=== PATIENT | female | born 1980 | race Caucasian/White ===

== ENCOUNTER 2020-02-25 12:40 | Emergency (ER) | payer OTHER, SELFPAY ==
--- NOTE | ~2020-02-25 | XR_ITS ---
EXAMINATION: XR ankle RT min 3V DATE: 02/25/2020 13:00 INDICATION: Right ankle injury and pain. TECHNIQUE: 4 views of right ankle were obtained. COMPARISON: None. FINDINGS: Bone alignment is normal. No fracture. There is mild osteoarthritis in the ankle joint and midfoot. There is heterotopic ossification distal to lateral malleolus, likely from old injury. There is an enthesophyte at medial malleolus. There are enthesophytes at the posterior and plantar aspects of calcaneal tuberosity. There is medial ankle soft tissue swelling. IMPRESSION: 1. Mild polyarticular osteoarthritis. Reviewed, dictated and finalized at location B.
[2020-02-25 12:52] VITALS: BP 130/80; PULSE 97; RESP 20; TEMP 36.8; O2SAT 100
--- NOTE | 2020-02-25 13:02 | ED.LOWEXIN ---
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 She states that she had her hands full and she missed the step coming out of her truck rolling her ankle outward. Patient has noted swelling and discomfort to the medial aspect of her right ankle with increase pain with weight bearing. Patient denies any tingling or numbness to her right foot or toes, strong pedal and posterior tibial pulses present. MD complaint: ankle injury Onset (ago): hour(s) (1) Injury: Right: ankle Type of Injury: eversion Place: other (exiting her truck) Severity: moderate Severity scale (1-10): 5 Relieving factors: rest Exacerbating factors: weight bearing and movement Context: fall Associated symptoms: swelling and able to partially bear weight Other symptoms: none Related Data Home Medications Medication Instructions Recorded Confirmed doxepin 25 mg HS 02/25/20 02/25/20 lamotrigine 100 mg DAILY 02/25/20 02/25/20 venlafaxine 150 mg PO DAILY 02/25/20 02/25/20 Review of Systems Review of Systems: Narrative: CONSTITUTIONAL: Denies fever, chills, or sweats. EYES: Denies visual changes, redness, or discharge. ENT: Denies rhinorrhea, congestion, sore throat, or otalgia. CARDIOVASCULAR: Denies chest pain, palpitations, or edema. RESPIRATORY: Denies cough or dyspnea. GASTROINTESTINAL: Denies abdominal pain, nausea, vomiting, or diarrhea. GENITOURINARY: Denies dysuria or hematuria. SKIN: Denies rash or itching. MUSCULOSKELETAL: Denies back pain, positive for right medial ankle joint pain, or myalgia. NEUROLOGIC: Denies headache, numbness, or weakness. PSYCHIATRIC: Denies anxiety or depression. All systems reviewed & are unremarkable except as noted in HPI and below PMFSH Past Medical History Medical History (Updated 02/25/20 @ 13:32 by Kimberly Sloan NP) Anxiety and depression Surgical History Surgical History (Updated 02/25/20 @ 13:33 by Kimberly Sloan NP) History of appendectomy Previous section Social History Social History (Updated 02/25/20 @ 13:38 by Kimberly Sloan NP) Smoking status: Current every day smoker Tobacco type: cigarettes Living arrangements: with family Gender identity (if verbalized by the patient): Female Comments At time of signature, agree with nursing past medical, surgical, social history. There is no relevant family history pertinent to the presenting complaint Exam Narrative: Exam Narrative: GENERAL: Well-appearing, well-nourished, and in no acute distress. HEAD: Normocephalic, atraumatic. EYES: PERRLA and EOMI. ENT: Nares clear, no rhinorrhea or epistaxis. Mucous membranes moist. NECK: Supple. CHEST: Clear to auscultation. No respiratory distress.SAO2 100% on room air HEART: Regular rate and rhythm. No murmur heard. Normal peripheral pulses. ABDOMEN: Soft, nontender, nondistended, normal active bowel sounds. EXTREMITIES: Normal range of motion. No edema.with exception to right medial ankle which is painful and swollen from rolling her ankle about an hour ago. Patient states that she has had previous fracture to the ankle on the outside, lateral aspect of right ankle. SKIN: Warm, dry, no rash. NEURO: No focal deficits. Alert and oriented x3. Course Vital Signs Vital signs: Vital Signs Temperature 36.8 C 02/25/20 12:52 Pulse Rate 97 02/25/20 12:52 Respiratory Rate 20 02/25/20 12:52 Blood Pressure 130/80 02/25/20 12:52 Pulse Oximetry 100 02/25/20 12:52 Temperature 36.8 C 02/25/20 12:52 Pulse Rate 97 02/25/20 12:52 Respiratory Rate 20 02/25/20 12:52 Blood Pressur
== END 2020-02-25 13:28 | disposition home or self-care (01) ==
PROVIDERS: Emergency Provider Registered Nurse
DX: S93.401A Sprain of unspecified ligament of right ankle, initial encounter (principal); S96.911A Strain of unspecified muscle and tendon at ankle and foot level, right foot, initial encounter; X50.9XXA Other and unspecified overexertion or strenuous movements or postures, initial encounter; M19.071 Primary osteoarthritis, right ankle and foot; F17.210 Nicotine dependence, cigarettes, uncomplicated; F41.9 Anxiety disorder, unspecified; F32.9 Major depressive disorder, single episode, unspecified
CPT/HCPCS: 73610; 99203; G0463

== ENCOUNTER 2022-01-19 21:06 | Emergency (ER) | payer OTHER, SELFPAY ==
--- NOTE | ~2022-01-19 | XR_ITS ---
EXAMINATION: XR chest 2V Exam Date/Time: 01/19/2022 22:30 CDT HISTORY: FATIGUE X 1 DAY Comparison: 08/12/2014. RESULT: Lines, tubes, and devices: None. Lungs and pleura: Clear. Cardiomediastinal silhouette: Stable cardiomediastinal silhouette. Other: No acute osseous or upper abdominal finding. IMPRESSION: No acute cardiopulmonary process. Reviewed, dictated and finalized at location K.
[2022-01-19 21:16] VITALS: BP 139/78; PULSE 123; RESP 22; TEMP 36.8; O2SAT 98
--- NOTE | 2022-01-19 21:22 | ED.WEAKNESS ---
HPI - Weakness General Chief complaint: Unspecified Stated complaint: weakness, headache, muscle aches, dehydration Time Seen by Provider: 01/19/22 21:22 Source: patient and RN notes reviewed Mode of arrival: ambulatory Limitations: no limitations History of Present Illness Complaint: generalized weakness Onset (ago): hour(s) (20) Duration: constant and progressively worsening Location: generalized Migration: none Severity: moderate Quality: aching Relieving factors: none Exacerbating factors: none Associated symptoms: headaches and myalgias Related Data Home Medications Medication Instructions Recorded Confirmed doxepin 25 mg capsule 25 mg HS 02/25/20 01/19/22 lamotrigine 100 mg tablet 100 mg DAILY 02/25/20 01/19/22 venlafaxine 150 mg 150 mg PO DAILY 02/25/20 01/19/22 capsule,extended release 24 hr Allergies Allergy/AdvReac Type Severity Reaction Status Date / Time ondansetron Allergy Intermediate rash Verified 01/19/22 21:20 Review of Systems Review of Systems: All systems reviewed & are unremarkable except as noted in HPI and below Constitutional: Constitutional: Reports chills and Reports fever(s) ( subjective) ENT: Reports sore throat ( mild) Respiratory: Respiratory: Reports cough ( productive phlegm) Gastrointestinal: Gastrointestinal: Reports diarrhea ( this morning), Denies nausea and Denies vomiting PMFSH Past Medical History Medical History Anxiety and depression Morbid obesity Surgical History Surgical History History of appendectomy Previous section Social History Social History Smoking status: Current every day smoker Tobacco type: cigarettes Gender identity (if verbalized by the patient): Female Exam Const: General: no acute distress, alert and ill appearing acutely Nutritional Appearance: well nourished and obese morbidly obese Orientation/consciousness: patient oriented x3 Limitations: no limitations Other: female tech in room during examination. HENMT: Head: normal to inspection Ears: external ears normal Eyes: Conjunctivae: conjunctivae normal Pupils: Equal, round and reactive pupils present EOM: EOMs intact bilaterally Neck: Neck: normal visual inspection Resp: Effort & Inspection: normal respiratory effort Auscultation: clear to auscultation bilaterally Cardio: Rate: tachycardic Rhythm: regular rhythm GI: GI Palp: Yes Soft to palpation and No Tenderness to palpation present (GI) Auscultation: normal bowel sounds Back/Spine/Pelvis: Cervical Spine: cervical ROM normal Thoracic/Lumbar Spine: thoraco-lumbar ROM normal Skin: General skin exam: normal color Rashes: no rashes Neuro: General: patient oriented x3, moves all extremities, no focal motor deficits and CN's II-XI intact bilaterally Speech: normal speech Gait exam (Neuro): Normal gait present Extrem: General: normal to inspection and no clubbing, cyanosis or edema Psych: Mental Status: mental status grossly normal Affect: normal affect Attitude: cooperative Course Vital Signs Vital signs: Vital Signs Temperature 36.8 C 01/19/22 21:16 Pulse Rate 123 H 01/19/22 21:16 Respiratory Rate 22 H 01/19/22 21:16 Blood Pressure 139/78 01/19/22 21:16 Pulse Oximetry 98 01/19/22 21:16 Oxygen Delivery Room Air 01/19/22 21:16 Temperature 36.8 C 01/19/22 21:16 Pulse Rate 98 01/19/22 23:26 Respiratory Rate 18 01/19/22 23:26 Blood Pressure 121/65 01/19/22 23:26 Pulse Oximetry 98 01/19/22 23:26 Oxygen Delivery Room Air 01/19/22 23:26 MDM - Weakness MDM Narrative Medical decision making narrative: I considered influenza, COVID, other viral syndromes, and pneumonia. Lab Data Attestation: I reviewed the patient's lab results. Result diagrams: 01/19/22 21:34 01/19/22
[2022-01-19 21:37] LABS: Basophils Absolute Auto 0.01 K/mm3 (0.00-0.10); Basophils Percent Auto 0.1 % (0.0-1.0); Hematocrit 42.3 % (35.0-49.0); Immature Granulocyte Absolute 0.05 K/mm3 (0.00-0.00); Immature Granulocyte Percent A 0.7 % (0.0-0.0); Lymphocytes Absolute Auto 0.86 K/mm3 (1.10-4.50); Lymphocytes Percent Auto 11.6 % (18.0-42.0); Mean Corpuscular HGB Conc 33.1 g/dL (32.0-36.0); Mean Corpuscular Hemoglobin 30.9 pg (27.0-31.0); Mean Corpuscular Volume 93.4 fL (78.0-102.0); Monocytes Absolute Auto 0.31 K/mm3 (0.10-0.90); Monocytes Percent Auto 4.2 % (2.0-11.0); Neutrophils Absolute Auto 6.2 K/mm3 (1.7-7.2); Neutrophils Percent Auto 83.4 % (50.0-70.0); Platelet Count Result 291 K/mm3 (150-420); Red Blood Count 4.53 M/mm3 (4.20-5.40); Red Cell Distribution Width 12.3 % (11.6-14.4); White Blood Count 7.4 K/mm3 (4.8-10.8)
[2022-01-19 22:03] LABS: Alanine Aminotransferase 39 U/L (14-59); Albumin Level 3.5 g/dL (3.4-5.0); Alkaline Phosphatase 135 U/L (46-116); Anion Gap 11 mmol/L (8-16); Aspartate Amino Transferase 14 U/L (15-37); Bilirubin,Total 0.5 mg/dL (0.00-1.00); Blood Urea Nitrogen 10 mg/dL (7-18); CRP 2.7 mg/dL (0.0-0.9); Calcium 8.7 mg/dL (8.5-10.1); Carbon Dioxide 21 mmol/L (21-32); Chloride 100 mmol/L (98-108); Estimated CRCL calculation 71 ml/min; Estimated Glomerular Filt Rate 47; Ferritin 149 ng/mL (8-252); Glucose 140 mg/dL (70-99); Osmolality Calculated 275 mOsm/kg (285-295); Sodium 132 mmol/L (136-145); Total Protein 7.5 g/dL (6.4-8.2)
[2022-01-19 22:13] LABS: Influenza A QL RT-PCR Negative (Negative); Influenza B QL RT-PCR Negative (Negative); Lactic Acid Reflex 1.2 mmol/L (0.4-2.0); SARS-CoV-2 RNA PCR Negative (Negative)
[2022-01-19] MEDS: KETOROLAC (*BKC) 60 MG/2 ML VIAL IM (23:22)
--- NOTE | 2022-01-19 23:25 | PC.NURSE ---
Went into pt's room with Dr Dangelo while he did his assessment with pt.
[2022-01-19 23:26] VITALS: BP 121/65; PULSE 98; RESP 18; O2SAT 98
== END 2022-01-19 23:26 | disposition home or self-care (01) ==
PROVIDERS: Emergency Provider Emergency Medicine
DX: B34.9 Viral infection, unspecified (principal); Z20.822 Contact with and (suspected) exposure to COVID-19
CPT/HCPCS: 36415; 71046; 73140; 80053; 82728; 83605; 83735; 85025; 86140; 87502; 96372; 99283; C9803; J1885; U0003; U0005

== ENCOUNTER 2023-03-20 18:21 | Emergency (ER) | payer OTHER, SELFPAY ==
[2023-03-20 18:23] VITALS: BP 125/95; PULSE 75; RESP 18; TEMP 37.2; O2SAT 98
[2023-03-20 18:25] VITALS: BP 125/95; PULSE 75; RESP 17; TEMP 37.2; O2SAT 98
--- NOTE | 2023-03-20 18:29 | ED.GENADULT ---
HPI - General Adult General Chief complaint: Ear Stated complaint: spider bite/ear Time Seen by Provider: 03/20/23 18:22 Source: patient Mode of arrival: ambulatory Limitations: no limitations History of Present Illness HPI narrative: patient is a 42-year-old female with right posterior ear pain and swelling in the past day. There was no spider bite but she was concerned the possibility. Onset (ago): day(s) Location: head Radiation: non-radiation Severity: moderate Severity scale (1-10): 4 Quality: sharp Pain Consistency: constant Relieving factors: none Exacerbating factors: movement Associated symptoms: headaches Treatments prior to arrival: none Related Data Home Medications Medication Instructions Recorded Confirmed doxepin 25 mg capsule 25 mg HS 02/25/20 03/20/23 lamotrigine 100 mg tablet 100 mg DAILY 02/25/20 03/20/23 venlafaxine 150 mg 150 mg PO DAILY 02/25/20 03/20/23 capsule,extended release 24 hr Allergies Allergy/AdvReac Type Severity Reaction Status Date / Time ondansetron Allergy Intermediate rash Verified 03/20/23 18:25 Review of Systems Review of Systems: All systems reviewed & are unremarkable except as noted in HPI and below Constitutional: Constitutional: Reports no additional constitutional complaints Eyes: Eyes: Reports no additional eye complaints ENT: Reports system reviewed and no additional complaints, except as documented Cardiovascular: Cardiovascular: Reports no additional cardiovascular complaints Respiratory: Respiratory: Reports no additional respiratory complaints Gastrointestinal: Gastrointestinal: Reports no additional gastrointestinal complaints Genitourinary: Genitourinary: Reports no additional female genitourinary complaints Musculoskeletal: Musculoskeletal: Reports no additional musculoskeletal complaints Integumentary/Breasts: Skin/Breast: Reports system reviewed and no additional complaints, except as docu Neurologic: Reports system reviewed and no additional complaints, except as documented Psychiatric: Psychiatric: Reports no additional psychiatric complaints Endocrine: Endocrine: Reports no additional endocrine complaints Hematologic/Lymphatic: Hematologic/Lymphatic: Reports no additional hematologic/lymphatic complaints Allergic/Immunologic: Allergic/Immunologic: Reports no additional allergic/immunologic complaints [facility] Past Medical History Medical History Anxiety and depression Morbid obesity Surgical History Surgical History History of appendectomy Previous section Social History Social History Smoking status: Current every day smoker Tobacco type: cigarettes Living arrangements: with family Gender identity (if verbalized by the patient): Female Exam Const: General: cooperative, healthy appearing and comfortable HENMT: Head: abnormal to inspection ( Right post auricular lymphadenopathy with tenderness and erythema), skull fracture palpable, normocephalic, signs of trauma and no abrasions Ears: hearing grossly normal bilaterally, external ears normal, TM's normal bilaterally, EAC's not normal and Abnormal EAC present ( right greater than left irritated and inflamed canals with excoriation) erythema, edema and EAC tenderness Face and sinus: normal facial exam and sinuses nontender Mouth: Yes Normal oral and palatal mucosa present, Yes lip normal, Yes tongue normal, Yes Normal salivary glands and ducts present, Yes oropharynx normal and Yes moist mucous membranes Chest: Chest palpation & inspection: normal inspection of the chest Resp: Effort & Inspection: normal respiratory effort, able to speak in complete sentences, normal respiratory pattern, no grunting and not labored Cardio: Jugular venous distension: no JVD Rate: regular rate Rhythm: regular rhy
[2023-03-20] MEDS: NEOMYCIN/POLYMYXIN/HYDROCORT OT SUSP 10 ML BTL (*BKC) 3 DROP EACH EAR (18:32)
[2023-03-20 18:51] VITALS: BP 125/95; PULSE 75; RESP 18; TEMP 37.2; O2SAT 98
== END 2023-03-20 18:51 | disposition home or self-care (01) ==
PROVIDERS: Emergency Provider Emergency Medicine
DX: H60.333 Swimmer's ear, bilateral (principal); F32.A Depression, unspecified; F41.9 Anxiety disorder, unspecified; F17.210 Nicotine dependence, cigarettes, uncomplicated
CPT/HCPCS: 99283; A9270

== ENCOUNTER 2023-06-04 21:44 | Emergency (ER) | payer OTHER, SELFPAY ==
[2023-06-04 21:51] VITALS: BP 110/91; PULSE 106; RESP 18; TEMP 36.7; O2SAT 97
--- NOTE | 2023-06-04 21:58 | ED.GENADULT ---
HPI - General Adult General Chief complaint: Extremity Injury, Lower Stated complaint: pain in L leg calf Time Seen by Provider: 06/04/23 21:58 Source: patient Mode of arrival: ambulatory Limitations: no limitations History of Present Illness HPI narrative: 42-year-old female history of obesity, anxiety / depression presents to the ER with Related Data Home Medications Medication Instructions Recorded Confirmed No Home Medications 06/04/23 06/04/23 Allergies Allergy/AdvReac Type Severity Reaction Status Date / Time ondansetron Allergy Intermediate rash Verified 06/04/23 21:49 PMFSH Past Medical History Medical History Anxiety and depression Morbid obesity Surgical History Surgical History History of appendectomy Previous section Social History Social History Smoking status: Current every day smoker Tobacco type: cigarettes Living arrangements: with family Gender identity (if verbalized by the patient): Female Discharge Plan Discharge Prescriptions: No Action No Home Medications Follow-up/Referrals: UNKNOWN,DOCTOR [Primary Care Provider] -
--- NOTE | 2023-06-04 22:12 | ED.SKABFB ---
HPI - Skin/Abscess/Foreign Bdy General Chief complaint: Extremity Injury, Lower Stated complaint: pain in L leg calf Time Seen by Provider: 06/04/23 21:58 Source: patient Mode of arrival: ambulatory Limitations: no limitations History of Present Illness HPI narrative: 42-year-old female with a history of obesity, anxiety / depression presents to the ER with 4 day history of -- left lateral leg erythematous rash measuring 8 cm X 4 cm. The rash is indurated and tender. No itching patient thought that this was a ruptured varicose vein. no other complaints. MD complaint: rash Onset (ago): day(s) ( Present for the past 4 days) Tetanus up to date: no Location: LLE Severity: mild Quality: aching Relieving factors: none Exacerbating factors: none Associated symptoms: denies other symptoms Treatments prior to arrival: none Related Data Allergies Allergy/AdvReac Type Severity Reaction Status Date / Time ondansetron Allergy Intermediate rash Verified 06/04/23 21:49 Review of Systems Review of Systems: All systems reviewed & are unremarkable except as noted in HPI and below Constitutional: Constitutional: Reports as per HPI and Reports no additional constitutional complaints Eyes: Eyes: Reports as per HPI and Reports no additional eye complaints ENT: Reports system reviewed and no additional complaints, except as documented and Reports as per HPI Cardiovascular: Cardiovascular: Reports as per HPI and Reports no additional cardiovascular complaints Respiratory: Respiratory: Reports as per HPI and Reports no additional respiratory complaints Gastrointestinal: Gastrointestinal: Reports as per HPI and Reports no additional gastrointestinal complaints Genitourinary: Genitourinary: Reports no additional female genitourinary complaints Musculoskeletal: Musculoskeletal: Reports no additional musculoskeletal complaints and Reports as per HPI Integumentary/Breasts: Comments: & cms X 4 cms erythematous rash on the left lateral leg. Prominent varicose veins Neurologic: Reports system reviewed and no additional complaints, except as documented and Reports as per HPI Psychiatric: Psychiatric: Reports no additional psychiatric complaints and Reports as per HPI Endocrine: Endocrine: Reports no additional endocrine complaints and Reports as per HPI Hematologic/Lymphatic: Hematologic/Lymphatic: Reports no additional hematologic/lymphatic complaints and Reports as per HPI Allergic/Immunologic: Allergic/Immunologic: Reports no additional allergic/immunologic complaints and Reports as per HPI [facility] Past Medical History Medical History Anxiety and depression Morbid obesity Surgical History Surgical History History of appendectomy Previous section Social History Social History Smoking status: Current every day smoker Tobacco type: cigarettes Living arrangements: with family Gender identity (if verbalized by the patient): Female Exam Const: General: healthy appearing and no acute distress Nutritional Appearance: well nourished Orientation/consciousness: patient oriented x3 Limitations: no limitations HENMT: Head: normal to inspection Ears: external ears normal Face/Nose/Sinus: Normal external nose present Face and sinus: normal facial exam Mouth: Yes Normal oral and palatal mucosa present Throat: posterior oropharynx normal Eyes: Conjunctivae: conjunctivae normal Pupils: Equal, round and reactive pupils present EOM: EOMs intact bilaterally Neck: Neck: normal visual inspection, no lymphadenopathy and no meningeal signs Chest: Chest palpation & inspection: normal inspection of the chest Resp: Effort & Inspection: normal respiratory effort Auscultation: clear to auscultation bilaterally Cardio: Rate: regular rate Rhythm: regul
[2023-06-04] MEDS: TETANUS,DIPHTHERIA,AC PERTUSSIS ADULT 0.5 ML (ADACEL) IM (22:41)
[2023-06-04 22:51] VITALS: BP 133/79; PULSE 87; RESP 18; O2SAT 98
== END 2023-06-04 22:55 | disposition home or self-care (01) ==
PROVIDERS: Emergency Provider Internal Medicine Critical Care Medicine
DX: L03.116 Cellulitis of left lower limb (principal); R21 Rash and other nonspecific skin eruption; F17.210 Nicotine dependence, cigarettes, uncomplicated; Z23 Encounter for immunization
CPT/HCPCS: 90471; 90715; 99283

== ENCOUNTER 2023-06-30 11:35 | Emergency (ER) | payer OTHER, SELFPAY ==
[2023-06-30 11:45] VITALS: BP 123/80; PULSE 69; RESP 16; TEMP 36.7; O2SAT 100
--- NOTE | 2023-06-30 12:16 | ED.GENADULT ---
HPI - General Adult General Chief complaint: Headache Stated complaint: Headache Time Seen by Provider: 06/30/23 12:16 Source: patient, RN notes reviewed and old records reviewed Mode of arrival: ambulatory Limitations: no limitations History of Present Illness HPI narrative: 42-year-old female presents to the [facility] with a headache. Started 2 days ago Started her period today, increased stress. No diagnosis of previous migraines. Denies any significant medical history Related Data Home Medications Medication Instructions Recorded Confirmed No Home Medications 06/30/23 06/30/23 Allergies Allergy/AdvReac Type Severity Reaction Status Date / Time ondansetron Allergy Intermediate rash Verified 06/30/23 11:41 Review of Systems Review of Systems: All systems reviewed & are unremarkable except as noted in HPI and below Constitutional: Constitutional: Reports no additional constitutional complaints Eyes: Eyes: Reports no additional eye complaints ENT: Reports system reviewed and no additional complaints, except as documented Cardiovascular: Cardiovascular: Reports no additional cardiovascular complaints, Denies chest pain and Denies dyspnea Respiratory: Respiratory: Reports no additional respiratory complaints, Denies chest congestion, Denies cough and Denies dyspnea Gastrointestinal: Gastrointestinal: Reports no additional gastrointestinal complaints, Denies abdominal pain, Denies nausea and Denies vomiting Musculoskeletal: Musculoskeletal: Reports no additional musculoskeletal complaints Integumentary/Breasts: Skin/Breast: Reports system reviewed and no additional complaints, except as docu Neurologic: Reports as per HPI Psychiatric: Psychiatric: Reports no additional psychiatric complaints Allergic/Immunologic: Allergic/Immunologic: Reports no additional allergic/immunologic complaints PMFSH Past Medical History Medical History Anxiety and depression Morbid obesity Surgical History Surgical History History of appendectomy Previous section Social History Social History Smoking status: Current every day smoker Tobacco type: cigarettes Living arrangements: with family Gender identity (if verbalized by the patient): Female Comments At the time of my signature, I reviewed and agree with the nursing past medical, surgical, social, and family history. There is no relevant family history pertinent to the patient complaint. Exam Const: General: cooperative, healthy appearing, comfortable, no acute distress, well developed, alert and well nourished Nutritional Appearance: well nourished Orientation/consciousness: patient oriented x3 Limitations: no limitations HENMT: Head: normal to inspection Ears: hearing grossly normal bilaterally, external ears normal, TM's normal bilaterally, EAC's normal, mastoids normal and no periauricular adenopathy Face/Nose/Sinus: Normal external nose present, Normal nares present, Normal nasal mucous membranes and turbinates present, normal facial exam and face symmetric Face and sinus: normal facial exam and face symmetric Mouth: Yes Normal oral and palatal mucosa present, Yes lip normal and Yes moist mucous membranes Throat: posterior oropharynx normal, tonsils normal and uvula midline Eyes: General: appearance normal, both eyes and all related structures Alignment and Position: alignment normal Periorbital: periorbital findings normal Pupils: Equal, round and reactive pupils present EOM: EOMs intact bilaterally Neck: Neck: normal visual inspection, full ROM, no lymphadenopathy and no meningeal signs Chest: Chest palpation & inspection: normal inspection of the chest Resp: Effort & Inspection: normal respiratory effort and able to speak in complete sentences Auscultation: clear to ausc
[2023-06-30] MEDS: KETOROLAC (*BKC) 60 MG/2 ML VIAL IM (12:27)
== END 2023-06-30 13:02 | disposition home or self-care (01) ==
PROVIDERS: Emergency Provider Nurse Practitioner
DX: R51.9 Headache, unspecified (principal); F17.210 Nicotine dependence, cigarettes, uncomplicated
CPT/HCPCS: 96372; 99213; G0463; J1885

== ENCOUNTER 2023-07-22 06:47 | Emergency (ER) | payer OTHER, SELFPAY ==
[2023-07-22 06:50] VITALS: BP 130/73; PULSE 78; RESP 20; TEMP 36.9; O2SAT 100
[2023-07-22 08:32] LABS: Influenza A QL RT-PCR Negative (Negative); Influenza B QL RT-PCR Negative (Negative); RSV RNA, RT-PCR Negative (Negative); SARS-CoV-2 RNA PCR Negative (Negative)
--- NOTE | 2023-07-22 09:18 | ED.GENADULT ---
HPI - General Adult General Chief complaint: Upper Respiratory Infection Stated complaint: uri Time Seen by Provider: 07/22/23 07:24 History of Present Illness HPI narrative: Patient is a 42-year-old female who presents with 2 separate issues. First issue is sinus congestion sore throat and cough. Ongoing for 4 days. No fevers or chills or sweats. No known sick contacts. No dyspnea. Patient also has issues with her proximal right thigh. Nose tenderness and swelling over last 2 days. Unable see the area but thinks it may be developing infection. Unsure if draining. Related Data Allergies Allergy/AdvReac Type Severity Reaction Status Date / Time ondansetron Allergy Intermediate rash Verified 07/22/23 07:33 Review of Systems Constitutional: Constitutional: Reports no additional constitutional complaints ENT: Reports nasal congestion and Reports sore throat Cardiovascular: Cardiovascular: Reports no additional cardiovascular complaints Respiratory: Respiratory: Reports no additional respiratory complaints Gastrointestinal: Gastrointestinal: Reports no additional gastrointestinal complaints Integumentary/Breasts: Skin/Breast: Denies erythema, Denies rash and Denies skin ulcer Comments: right leg induration PMFSH Past Medical History Medical History Anxiety and depression Morbid obesity Surgical History Surgical History History of appendectomy Previous section Social History Social History Smoking status: Current every day smoker Tobacco type: cigarettes Living arrangements: with family Gender identity (if verbalized by the patient): Female Exam Narrative: GENERAL: Well-appearing, well-nourished, and in no acute distress. HEAD: Normocephalic, atraumatic. ENT: Mucous membranes moist. CHEST: Clear to auscultation. No respiratory distress. HEART: Regular rate and rhythm. Normal peripheral pulses. EXTREMITIES: Normal range of motion. No edema. SKIN: Warm, dry, no rash. Developing cellulitis versus abscess to the proximal right thigh, 1.5 cm in diameter. the area is indurated and tender but there is no fluctuance. NEURO: Alert and oriented x3. PSYCH: Normal mood and affect. Course Course Emergency Course: No drainage after needling the area of infection to leg. Discharge home with oral antibiotic. Discussed viral swab results. Discharge. Vital Signs Vital signs: Vital Signs Temperature 98.5 F 07/22/23 06:50 Pulse Rate 78 07/22/23 06:50 Respiratory Rate 20 07/22/23 06:50 Blood Pressure 130/73 07/22/23 06:50 Pulse Oximetry 100 07/22/23 06:50 Oxygen Delivery Room Air 07/22/23 06:50 Temperature 98.5 F 07/22/23 06:50 Pulse Rate 78 07/22/23 06:50 Respiratory Rate 20 07/22/23 06:50 Blood Pressure 130/73 07/22/23 06:50 Pulse Oximetry 100 07/22/23 06:50 Oxygen Delivery Room Air 07/22/23 06:50 Medical Decision Making Vital Signs Vital Signs: Vital Signs Temperature 98.5 F 07/22/23 06:50 Pulse Rate 78 07/22/23 06:50 Respiratory Rate 20 07/22/23 06:50 Blood Pressure 130/73 07/22/23 06:50 Pulse Oximetry 100 07/22/23 06:50 Oxygen Delivery Room Air 07/22/23 06:50 Temperature 98.5 F 07/22/23 06:50 Pulse Rate 78 07/22/23 06:50 Respiratory Rate 20 07/22/23 06:50 Blood Pressure 130/73 07/22/23 06:50 Pulse Oximetry 100 07/22/23 06:50 Oxygen Delivery Room Air 07/22/23 06:50 Lab Data Labs: Lab Results 07/22/23 Range/Units 07:43 Influenza A (RT-PCR) Negative (Negative) Influenza B (RT-PCR) Negative (Negative) RSV (RT-PCR) Negative (Negative) SARS-CoV-2 RNA (RT-PCR) Negative (Negative) Discharge Plan Discharge Clinical Impression: Acute viral syndrome, Cellulitis Patient
== END 2023-07-22 07:32 | disposition home or self-care (01) ==
PROVIDERS: Emergency Provider Emergency Medicine
DX: B34.9 Viral infection, unspecified (principal); L03.115 Cellulitis of right lower limb; Z20.822 Contact with and (suspected) exposure to COVID-19; E66.01 Morbid (severe) obesity due to excess calories; Z68.41 Body mass index [BMI] 40.0-44.9, adult; F17.210 Nicotine dependence, cigarettes, uncomplicated
CPT/HCPCS: 87637; 99283

== ENCOUNTER 2023-11-09 18:13 | Emergency (ER) | payer SELFPAY ==
[2023-11-09 18:13] VITALS: BP 125/85; PULSE 80; RESP 18; TEMP 36.1; O2SAT 99
--- NOTE | 2023-11-09 18:25 | ED.DENTAL ---
HPI - Dental/Oral General Chief complaint: Dental/Oral Stated complaint: left jaw pain Time Seen by Provider: 11/09/23 18:25 Source: patient Mode of arrival: ambulatory Limitations: no limitations History of Present Illness HPI Narrative: 43-year-old female, smoker with a history of anxiety / depression presents to the ER with -- left TMJ pain and swelling. she has had this pain off and on for the past 1 or 2 weeks. the left TMJ pops intermittently. Pain is continuous. She swelling around the left TMJ. no ear complaints. No dental pain. -- Thumb sucking Severity scale (1-10): 6 Relieving factors: nothing Exacerbating factors: nothing Treatment prior to arrival: none Related Data Allergies Allergy/AdvReac Type Severity Reaction Status Date / Time ondansetron Allergy Intermediate rash Verified 11/09/23 18:14 Review of Systems Review of Systems: All systems reviewed & are unremarkable except as noted in HPI and below Constitutional: Constitutional: Reports as per HPI and Reports no additional constitutional complaints Eyes: Eyes: Reports as per HPI and Reports no additional eye complaints ENT: Reports system reviewed and no additional complaints, except as documented and Reports as per HPI Cardiovascular: Cardiovascular: Reports as per HPI and Reports no additional cardiovascular complaints Respiratory: Respiratory: Reports as per HPI and Reports no additional respiratory complaints Gastrointestinal: Gastrointestinal: Reports as per HPI and Reports no additional gastrointestinal complaints Genitourinary: Genitourinary: Reports no additional female genitourinary complaints and Reports as per HPI Musculoskeletal: Musculoskeletal: Reports no additional musculoskeletal complaints Comments: Left TMJ pain Integumentary/Breasts: Skin/Breast: Reports system reviewed and no additional complaints, except as docu and Reports as per HPI Neurologic: Reports system reviewed and no additional complaints, except as documented and Reports as per HPI Psychiatric: Psychiatric: Reports no additional psychiatric complaints and Reports as per HPI Endocrine: Endocrine: Reports no additional endocrine complaints and Reports as per HPI Hematologic/Lymphatic: Hematologic/Lymphatic: Reports no additional hematologic/lymphatic complaints and Reports as per HPI Allergic/Immunologic: Allergic/Immunologic: Reports no additional allergic/immunologic complaints and Reports as per HPI PMFSH Past Medical History Medical History Anxiety and depression Morbid obesity Surgical History Surgical History History of appendectomy Previous section Social History Social History Smoking status: Current every day smoker Tobacco type: cigarettes Living arrangements: with family Gender identity (if verbalized by the patient): Female Exam Const: General: healthy appearing Nutritional Appearance: well nourished Orientation/consciousness: patient oriented x3 Limitations: no limitations HENMT: Head: normal to inspection Ears: external ears normal Face/Nose/Sinus: Normal external nose present Face and sinus: normal facial exam Mouth: Yes Normal oral and palatal mucosa present Teeth and gingiva: dentition normal ( no dental caries noted. She has extraction of 2nd and 3rd molars.) Throat: posterior oropharynx normal Other: Tenderness over the left TMJ with swelling around it. Eyes: Conjunctivae: conjunctivae normal Pupils: Equal, round and reactive pupils present EOM: EOMs intact bilaterally Direct Ophthalmoscopy: no photophobia Neck: Neck: normal visual inspection, no lymphadenopathy and no meningeal signs Chest: Chest palpation & inspection: normal inspection of the chest Resp: Effort & Inspection: normal respiratory effort Auscultation
[2023-11-09] MEDS: KETOROLAC 30 MG/ML VIAL (*BKC) IM (18:53)
--- NOTE | 2023-11-09 19:05 | PC.NURSE ---
patient report received from TATIANA Tamayo for continuity of care by RN on car shifter.
== END 2023-11-09 19:21 | disposition home or self-care (01) ==
LOC: CHSED 18:49
PROVIDERS: Emergency Provider Internal Medicine Critical Care Medicine
DX: M26.622 Arthralgia of left temporomandibular joint (principal); F41.8 Other specified anxiety disorders; E66.01 Morbid (severe) obesity due to excess calories; Z68.41 Body mass index [BMI] 40.0-44.9, adult; F17.210 Nicotine dependence, cigarettes, uncomplicated
CPT/HCPCS: 96372; 99283; J1885

== ENCOUNTER 2024-02-24 07:20 | Emergency (ER) | payer MEDICAID, SELFPAY ==
[2024-02-24 07:20] VITALS: BP 123/91; PULSE 65; RESP 16; TEMP 36; O2SAT 100
--- NOTE | 2024-02-24 08:03 | ED.BACK ---
HPI - Back Pain/Injury General Chief Complaint: Back Pain/Injury Stated Complaint: Back pain Time Seen by Provider: 02/24/24 07:51 Source: patient History of Present Illness HPI Narrative: 43-YEAR-OLD WHITE FEMALE WITH LONG HISTORY OF BACK, PREVIOUSLY SEEN BY A SPINE SURGEON WHO RECOMMENDED SURGERY BUT SAID HE WOULD NOT DO IT UNLESS SHE STOPS SMOKING, REPORTS THAT SHE GOT UP THIS MORNING AND HAS A LOT OF PAIN IN HER. SHE WAS MOVING STUFF DONE YESTERDAY, DOES NOT SPECIFICALLY REMEMBER ANY TRIP STUMBLE OR FALL, BUT PAIN IS WORSE THAN USUAL. DENIES ANY RADICULAR COMPONENT, DENIES ANY SENSORY LOSS, WEAKNESS, INCONTINENCE. NO RECENT FEVER, CHILLS, SINUS DRAINAGE, SORE THROAT, COUGH, CHEST PAIN, PALPITATIONS, NEAR-SYNCOPE OR SYNCOPE. DENIES ANY RECENT ABDOMINAL PAIN, NAUSEA VOMITING, DIARRHEA CONSTIPATION, DYSURIA URGENCY OR FOR Related Data Allergies Allergy/AdvReac Type Severity Reaction Status Date / Time ondansetron Allergy Intermediate rash Verified 11/09/23 18:14 Review of Systems Review of Systems: All systems reviewed & are unremarkable except as noted in HPI and below PMFSH Past Medical History Medical History Anxiety and depression Morbid obesity Surgical History Surgical History History of appendectomy Previous section Social History Social History Smoking status: Current every day smoker Tobacco type: cigarettes Living arrangements: with family Gender identity (if verbalized by the patient): Female Exam Const: General: healthy appearing, no acute distress and alert Nutritional Appearance: obese HENMT: Head: normal to inspection Face and sinus: normal facial exam Eyes: Conjunctivae: conjunctivae normal Pupils: Equal, round and reactive pupils present EOM: EOMs intact bilaterally Neck: Neck: no lymphadenopathy Resp: Effort & Inspection: normal respiratory effort Cardio: Rate: regular rate Rhythm: regular rhythm GI: GI Palp: Yes Soft to palpation, No Tenderness to palpation present (GI), No Guarding due to palpation present (GI), No Rigid due to palpation and No Palpable mass present Back/Spine/Pelvis: Other: there is some tenderness at the lower lumbar spine diffusely including paravertebral musculature, and upper sacrum. No specific point tenderness, no deformity, no step-off, no crepitance, able to move and lift lower extremities, shift position, no evidence of radicular pain or loss of sensation or strength Skin: General skin exam: normal color Rashes: no rashes Wounds: no wounds Neuro: General: patient oriented x3 and moves all extremities Speech: normal speech Extrem: General: normal to inspection and edema ( trace) bilateral Psych: Mental Status: mental status grossly normal Affect: normal affect Attitude: cooperative Course Course Emergency Course: differential diagnosis includes but is not limited to lumbar strain, muscle spasm, spinal cord or nerve root compression ( less likely as no radicular pain), symptoms do not appear to indicate UTI, pyelonephritis, or other abdominal etiology. Will treat with IM Toradol and with Solu-Medrol. Will discharge on prednisone, Celebrex, Flexeril, off work until Tuesday then may return with no lifting over 25 lb, follow-up with workman's comp physician per employers policy. return to the emergency department if pain worsens, radicular pain begins, bowel or bladder incontinence or other concerns Differential diagnosis, workup, interpretation of labs, images, radiology reports, telemetry monitoring, EKG, initial treatment, diagnosis, development of treatment plan, disposition complexity and risk is low. Discussed workup, results, and plan with patient and their family if available and they are in agreement. Vital Signs Vital signs: Vital Signs Temp
[2024-02-24] MEDS: KETOROLAC 30 MG/ML VIAL (*BKC) IM (08:13)
[2024-02-24] MEDS: methylPREDNISolone SOD SUCC 125 MG VIAL IM (08:14)
[2024-02-24 08:52] VITALS: BP 124/94; PULSE 66; RESP 20; O2SAT 98
--- NOTE | 2024-02-24 10:27 | ED.BACK ---
HPI - Back Pain/Injury General Chief Complaint: Back Pain/Injury Stated Complaint: Back pain Time Seen by Provider: 02/24/24 07:51 Source: patient History of Present Illness HPI Narrative: 43-year-old white female with a long history of low back pain, which at 1 time she was seen by spine surgeon who recommended surgery but then told her that they would not operate and so she stop smoking, and she has never been able stop smoking. 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 She denies any radicular component, denies any bowel or bladder dysfunction, denies any change or loss in sensation or strength she does not recall any recent trips number fall, but reports sometimes she seems to have flare ups without any particular trigger Related Data Allergies Allergy/AdvReac Type Severity Reaction Status Date / Time ondansetron Allergy Intermediate rash Verified 11/09/23 18:14 Review of Systems Review of Systems: All systems reviewed & are unremarkable except as noted in HPI and below PMFSH Past Medical History Medical History Anxiety and depression Morbid obesity Surgical History Surgical History History of appendectomy Previous section Social History Social History Smoking status: Current every day smoker Tobacco type: cigarettes Living arrangements: with family Gender identity (if verbalized by the patient): Female Exam Const: General: healthy appearing, no acute distress, alert and well nourished Nutritional Appearance: well nourished Orientation/consciousness: patient oriented x3 Limitations: no limitations HENMT: Head: normal to inspection Ears: external ears normal Face/Nose/Sinus: Normal external nose present and normal facial exam Face and sinus: normal facial exam Mouth: Yes Normal oral and palatal mucosa present Teeth and gingiva: dentition normal Throat: posterior oropharynx normal Eyes: Conjunctivae: conjunctivae normal Pupils: Equal, round and reactive pupils present EOM: EOMs intact bilaterally Neck: Neck: normal visual inspection and no meningeal signs Chest: Chest palpation & inspection: normal inspection of the chest Resp: Effort & Inspection: normal respiratory effort Auscultation: clear to auscultation bilaterally Cardio: Rate: regular rate Rhythm: regular rhythm GI: GI Palp: Yes Soft to palpation and Yes Tenderness to palpation present (GI) Auscultation: normal bowel sounds Other: No mass, no organomegaly, no percussion or rebound tenderness : General: Yes bladder normal to palpation Bimanual exam- vagina & uterus: bladder normal to palpation Back/Spine/Pelvis: Back: no CVA tenderness Other: patient has some tenderness and palpation of the lumbar sacral spine area including paravertebral musculature. There is no midline specific point tenderness, no deformity, no step-off. No hip tenderness, negative straight leg raise Skin: General skin exam: normal color Rashes: no rashes Wounds: no wounds Neuro: General: patient oriented x3, moves all extremities, no meningeal signs, no focal motor deficits and CN's II-XI intact bilaterally Cranial nerves: Yes Equal, round and reactive pupils present and Yes Nystagmus not present Speech: normal speech Gait exam (Neuro): Normal gait present Extrem: General: normal to inspection, no clubbing, cyanosis or edema and no pedal edema Psych: Mental Status: mental status grossly normal Attitude: cooperative Course Course Emergency Course: differential diagnosis includes back strain, muscle strain, muscle spasm, occult fracture, spondylolisthesis, spondylosis, UTI, cystitis, pruritus
== END 2024-02-24 08:52 | disposition home or self-care (01) ==
PROVIDERS: Emergency Provider Emergency Medicine
DX: S39.012A Strain of muscle, fascia and tendon of lower back, initial encounter (principal); F17.210 Nicotine dependence, cigarettes, uncomplicated; X58.XXXA Exposure to other specified factors, initial encounter
CPT/HCPCS: 96372; 99284; J1885; J2919

== ENCOUNTER 2024-12-08 12:07 | Emergency (ER) | payer OTHER, MEDICAID, SELFPAY ==
[2024-12-08 12:09] VITALS: BP 134/93; PULSE 79; RESP 18; TEMP 36.5; O2SAT 96
--- OUTSIDE RECORDS SUMMARY | 2024-12-08 12:09 | XMS_ITS | Referral Summary ---
Author Organization [facility] Address [address] [place] [address] Care Team Providers Care Licensed Pharmacist Name Role Phone No, Physician Primary Care Provider [phone] Abdullahi Car MD Unavailable Encounters Date Type Department Care Team Description 10/24/2024 2:30 PM CDT Therapy [facility] [place] [address] Tono Messer, PT Iliotibial band syndrome, left leg (Primary Dx) 10/17/2024 4:15 PM CDT Therapy [facility] Physical [place] [address] Corona Lynn, PT Iliotibial band syndrome, left leg (Primary Dx) 10/09/2024 4:15 PM CDT Therapy [facility] Physical [place] [address] Tono Messer, PT Iliotibial band syndrome, left leg (Primary Dx) 10/03/2024 2:45 PM CDT Therapy [facility] Physical [place] [address] Corona Lynn, PT Iliotibial band syndrome, left leg (Primary Dx) 09/28/2024 2:30 PM CDT Therapy [facility] Physical [place] [address] ZulyaCorona donahue Windsor, PT Iliotibial band syndrome, left leg (Primary Dx) 09/24/2024 11:15 AM CDT Therapy [facility] Physical [place] [address] Tono Messer, PT Iliotibial band syndrome, left leg (Primary Dx) 09/17/2024 8:15 AM GROWTH MEDIA MIXER MUSHROOM Therapy [facility] Physical [place] [address] Corona Lynnril, PT Iliotibial band syndrome, left leg (Primary Dx) 09/11/2024 9:15 AM GROWTH MEDIA MIXER MUSHROOM Therapy [facility] Physical Therapy - [place] [address] Tono Messer, PT Iliotibial band syndrome, left leg (Primary Dx) from Last 3 Months Allergies Active Allergy Reactions Criticality Noted Date Comments Ondansetron Hives Medium Medications doxepin (SINEquan) 25 mg capsule TK 1 C PO QD HS 02/08/2020 Active lamoTRIgine (LaMICtal) 100 mg tablet TK 2 TS PO QD 02/08/2020 Active venlafaxine XR (EFFEXOR-XR) 150 mg 24 hr capsule TK 1 C PO QD 02/29/2020 Active Active Problems Problem Noted Date Diagnosed Date 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 Patient does not drink Frequency of Binge Drinking Not on file 12/17 Personal Safety Answer Date Recorded Have you ever been in or are you currently in a harmful physical or emotional relationship or is someone making you feel afraid or unsafe? Denies 01/07/2023 Comments No Sex and Gender Information Value Date Recorded Sex Assigned at Not on file Legal Sex Female 8:59 AM GROWTH MEDIA MIXER MUSHROOM Gender Identity Not on file Sexual Orientation Not on file Last Filed Vital Signs Vital Sign Reading Time Taken Comments Blood Pressure 106/65 01/07/2023 10:23 AM CDT Pulse 78 01/07/2023 10:23 AM CDT Temperature 36.4 C (97.5 F) 01/07/2023 10:23 AM CDT Respiratory Rate 16 01/07/2023 10:23 AM CDT Oxygen Saturation 97% 01/07/2023 10:23 AM CDT Inhaled Oxygen Concentration - - Weight 125.9 kg (277 lb 9 oz) 01/07/2023 7:11 AM CDT Height 175.3 cm (5' 9) 01/07/2023 7:11 AM CDT Body Mass Index 40.99 01/07/2023 7:11 AM CDT Plan of Treatment Not on file Insurance [facility] MEDICAID [facility] HMO/PPO Address: [address] [address] [place] [address] [facility] H[facility]/PPO Address: [address] [address] [place] [address] Care Teams Licensed Pharmacist Relationship Specialty Start Date End Date No, Physician PCP - General 12/27/22 Abdullahi Car MD [address] [place] [address] DR MONTANO [address] [address] Consulting Physician Obstetrics and Gynecology 01/07/23
--- OUTSIDE RECORDS SUMMARY | 2024-12-08 12:09 | XMS_ITS | CONTINUITY OF CARE DOCUMENT ---
Author Name valentina montgomery Address Unknown Organization [facility] Address [address] [place] [address] [address] [place] [address] Phone [phone] Care Team Providers Care Cognos Report Developer Name Role Phone Oleksandr Sheehan MD Unavailable Oleksandr Sheehan MD Unavailable [phone] INSURANCE PROVIDERS Payer name Policy type / Coverage type [place] red republican ID [facility] MEDICAID (2) Medicaid [id number]
--- OUTSIDE RECORDS SUMMARY | 2024-12-08 12:09 | XMS_ITS | Clinical Summary ---
Author Organization [facility] Address [address] [place] [address] Care Team Providers Care Elevator Erector Helper Name Role Phone No, Physician Primary Care Provider [phone] Abdullahi Car MD Unavailable Allergies Active Allergy Reactions Criticality Noted Date [...] (HGSIL) on cytologic smear of cervix 11/17/2022 Encounters Date Type Department Care Team Description 10/24/2024 2:30 PM CDT Therapy [facility] [place] [address] Tono Messer, PT Iliotibial band syndrome, left leg (Primary Dx) 10/17/2024 4:15 PM CDT Therapy [facility] [place] [address] Corona Lynn, PT Iliotibial band syndrome, left leg (Primary Dx) 10/09/2024 4:15 PM CDT Therapy [facility] Physical [facility] [place] [address] Tono Messer, PT Iliotibial band syndrome, left leg (Primary Dx) 10/03/2024 2:45 PM CDT Therapy [facility] Physical [facility] [place] [address] Corona Lynn, PT Iliotibial band syndrome, left leg (Primary Dx) 09/28/2024 2:30 PM CDT Therapy [facility] Physical [facility] [place] [address] Corona Lynn, PT Iliotibial band syndrome, left leg (Primary Dx) 09/24/2024 11:15 AM CDT Therapy [facility] [address] Tono Messer, PT Iliotibial band syndrome, left leg (Primary Dx) 09/17/2024 8:15 AM TOUR CONDUCTOR Therapy [facility] Physical [facility] [place] [address] Corona Lynn, PT Iliotibial band syndrome, left leg (Primary Dx) 09/11/2024 9:15 AM TOUR CONDUCTOR Therapy [facility] Physical [facility] [place] [address] Tono Messer, PT Iliotibial band syndrome, left leg (Primary Dx) from Last 3 Months Surgical History Surgery Date Site/Laterality Comments APPENDECTOMY SECTION Medical History Medical History Date Comments Depression Anxiety Social History Tobacco Use Types Packs/Day Years [...] on file Legal Sex Female 8:59 AM TOUR CONDUCTOR Gender Identity Not on file Sexual Orientation Not on file Obstetrics History Last Filed Vital Signs Vital Sign Reading [...] 01/07/2023 7:11 AM CDT Plan of Treatment Health Maintenance Due Date Last Done Comments Breast Cancer Screening-Mammogram 1978 Cervical Cancer Screening 1978 Colon Cancer Screening-Colonoscopy 1978 Depression Screening 1978 Hepatitis C Screening 1978 DTaP/Tdap/Td Vaccine (1 - Tdap) 1989 Regular Well Visit/Exam 18-64 1996 Pneumococcal vaccine <65 (1 of 2 - PCV) 1997 Influenza Vaccine (Season Ended) 2025 08/30/2012 Hepatitis B Screening Completed 08/30/2012 , 02/25/2009 HPV Vaccines Aged Out No longer eligi ble based on patient's age to complete this topic Insurance [facility] MEDICAID [facility] Care Teams Elevator Erector Helper Relationship Specialty Start Date End Date No, Physician PCP - General 12/27/22 Abdullahi Car MD [address] [place] [address] DR CHARMAINE Perry [address] [address] Consulting Physician Obstetrics and Gynecology 01/07/23
--- OUTSIDE RECORDS SUMMARY | 2024-12-08 12:09 | XMS_ITS | Clinical Summary ---
Author Organization [facility] [address] Address [address] [place] [address] Care Team Providers Care Commercial Credit Officer Name Role Phone Blaire Banda WHITE SOURER-CATERING SOUS CHEF Primary Care Provider Source Comments [facility] [address],non-owned Affiliates and Associated Physician Practices is amultiple site organization consisting of ambulatory clinics and hospital sitesin [place], [place], [place]. This disclosure is being madepursuant to the Care Everywhere program and may not contain all information available regarding this patient. Last updated 18.[facility] [address] Allergies No known active allergies Medications * Be aware that medications may not be up to date on this document. Alwaysverify current medications with the patient. triamcinolone acetonide (Kenalog) 0.1 % cream APPLY THIN COAT TO AFFECTED AREA TWICE A DAY 01/03/2023 Active venlafaxine XR 24hr (Effexor XR) 150 MG capsule Take 1 (one) capsule by mouth once daily 02/04/2023 Active norethindrone (Ortho Micronor; Nor-Qd; Sandie; Summer; Jayne-Be; Alona; Jolivette) 0.35 MG tablet 04/04/2023 Active lamoTRIgine (LaMICtal) 100 MG tablet Take 2 (two) tablets by mouth once daily 02/04/2023 Active ibuprofen (Motrin) 600 MG tablet Take 1 (one) tablet by mouth 01/07/2023 Active doxepin (SINEquan) 25 MG capsule TAKE 2 CAPSULES BY MOUTH EVERY DAY AT BEDTIME 02/01/2023 Active terbinafine (LamISIL) 250 MG tabletIndicatio ns:Onychomycosi s of Toenails,Tinea Corporis TAKE 1 (ONE) TABLET BY MOUTH ONCE DAILY REASONS: FUNGAL TOENAIL DISEASE, RINGWORM OF THE BODY 30 tablet 1 05/26/2023 Active Social History Tobacco Use Types Packs/Day Years Used Date Smoking Tobacco: Never Assessed Comments Unknown Sex and Gender Information Value Date Recorded Sex Assigned at Not on file 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 Gender Identity Not on file Sexual Orientation Not on file Plan of Treatment Health Maintenance Due Date Last Done Comments COLOGUARD (AGES 45-75) - COL ON CA SCREENING 1978 COLON MONITORING 1978 COLONOSCOPY - COLON CA SCREENING 1978 CT COLONOGRAPHY - COLON CA SCREENING 1978 Colorectal Cancer Screening 1978 FIT - COLON CA SCREENING 1978 FLEX SIG - COLON CA SCREENING 1978 LIPID TESTING 1978 MAMMOGRAM 1978 PAP SMEAR 1978 HIV SCREENING 1993 HEPATITIS C SCREENING 09/24/1996 DTAP/TDAP/TD VACCINES (1 - Tdap) 1997 HEPATITIS B VACCINE (1 of 3 - 19+ 3-dose series) 1997 COVID-19 VACCINE (1 - 2023-2 5 season) 2024 DEPRESSION SCREENING 07/18/2024 INFLUENZA VACCINE (Season Ended) 2025 ZOSTER VACCINE (1 of 2) 2028 HIB VACCINE Aged Out No longer eligi ble based on patient's age to complete this topic HPV VACCINE Aged Out No longer eligi ble based on patient's age to complete this topic MENINGOCOCCAL (Group B) VACC INE SHARED DECISION-MAKING Aged Out No longer eligibl e based on patient's age to complete this topic MENINGOCOCCAL GROUPS A/C/Y/W VACCINE Aged Out No longer eligible b ased on patient's age to complete this topic PNEUMOCOCCAL VACCINE Aged Out No long er eligible based on patient's age to complete this topic Insurance [facility] Care Teams Commercial Credit Officer Relationship Specialty Start Date End Date Blaire Banda, AMARIS-CATERING SOUS CHEF [address]tran [address] [place] [address] [phone] PCP - General 02/19/19
--- NOTE | 2024-12-08 12:14 | ED.HA ---
HPI - Headache General Chief Complaint: Headache Stated Complaint: migraine Time Seen by Provider: 12/08/24 12:07 Source: patient Mode of arrival: ambulatory Limitations: no limitations History of Present Illness HPI Narrative: this is a 44-year-old female with a history of migraines has been out of her Imitrex and migraine right-sided throbbing pulsatile with light and noise sensitivity with no nausea or vomiting no fever chills no neck pain or neck stiffness rates her pain about a 7/10, no chest pain or shortness of breath no abdominal pain. MD elicited complaint: migraine Onset (ago): hour(s) Onset description: gradually Location: right and frontal Severity: moderate Pain scale (0-10): 7 Quality & Timing: throbbing, pulsatile and similar to previous headaches Exacerbating factors: light and noise Relieving factors: nothing Related Data Allergies Allergy/AdvReac Type Severity Reaction Status Date / Time ondansetron Allergy Intermediate rash Verified 12/08/24 12:08 Review of Systems Review of Systems: All systems reviewed & are unremarkable except as noted in HPI and below PMFSH Past Medical History Medical History Morbid obesity Anxiety and depression Surgical History Surgical History Previous section History of appendectomy Social History Social History Smoking status: Current every day smoker Tobacco type: cigarettes Living arrangements: with family Gender identity (if verbalized by the patient): Female Exam Const: General: healthy appearing and no acute distress Nutritional Appearance: well nourished and obese Orientation/consciousness: patient oriented x3 Limitations: no limitations HENMT: Head: normal to inspection Face and sinus: normal facial exam Eyes: Conjunctivae: conjunctivae normal Pupils: Equal, round and reactive pupils present EOM: EOMs intact bilaterally Neck: Neck: normal visual inspection Chest: Chest palpation & inspection: normal inspection of the chest Resp: Effort & Inspection: normal respiratory effort Auscultation: clear to auscultation bilaterally Cardio: Rate: regular rate Rhythm: regular rhythm GI: GI Palp: Yes Soft to palpation Auscultation: normal bowel sounds : General: Yes bladder normal to palpation Extrem: General: normal to inspection, no clubbing, cyanosis or edema and no pedal edema Course Course Emergency Course: Patient with typical migraine headache received IV fluids and IV Toradol 30mg and after reassessment symptoms have improved. Vital Signs Vital signs: Vital Signs Temperature 36.5 C 12/08/24 12:09 Pulse Rate 79 12/08/24 12:09 Respiratory Rate 18 12/08/24 12:09 Blood Pressure 134/93 H 12/08/24 12:09 Pulse Oximetry 96 12/08/24 12:09 Oxygen Delivery Room Air 12/08/24 12:09 Temperature 36.5 C 12/08/24 12:09 Pulse Rate 79 12/08/24 12:09 Respiratory Rate 18 12/08/24 12:09 Blood Pressure 134/93 H 12/08/24 12:09 Pulse Oximetry 96 12/08/24 12:09 Oxygen Delivery Room Air 12/08/24 12:09 Critical Care Time Critical Care Time Critical Care Time: No Discharge Plan Discharge Clinical Impression: Migraine Qualifiers: Migraine type: unspecified Status migrainosus presence: without status migrainosus Intractability: not intractable Qualified Code(s): G43.909 - Migraine, unspecified, not intractable, without status migrainosus Patient Disposition: Home Condition: Stable Instructions: Antibiotic Form, Migraine Headache (ED) Additional Instructions: advised patient to take medicine as prescribed and follow with primary care physician for further evaluation treatment if symptoms persist or worsen. Patient Language: Citizen Of [place] Prescriptions: New tramadol 50 mg tablet 50 mg PO Q6H PRN (Reason: pain) Qty: 20 0RF No Action diclofenac sodium 50 mg tablet,delayed release (DR/EC) 50 mg PO Q12H PRN (Reason: pain) Qty: 30 0RF celecoxib 200 mg capsule 200 mg PO BID Qty: 60 0RF cyclobenzaprine 10 mg tablet 10 mg PO TID PRN (Reason: muscle spasm) Qty: 60 0RF prednisone 5 mg tablet 5 mg PO DIRECTED Qty: 60 0RF Rx Instructions: see taper instructions take 8 tabs today, then taper by 1 tab daily until gone, dispense quantity sufficient Follow-up/Referrals: UNKNOWN,DOCTOR [Primary Care Provider] -
[2024-12-08] MEDS: KETOROLAC 30 MG/ML VIAL (*BKC) IV PUSH (12:27)
[2024-12-08] MEDS: SODIUM CHLORIDE 0.9% IV 1,000 ML 999 ML IV CONT (12:27)
[2024-12-08 12:30] VITALS: BP 119/82; PULSE 58; RESP 17; O2SAT 98
--- OUTSIDE RECORDS SUMMARY | 2024-12-08 12:56 | XMS_ITS | Referral Summary ---
Author Organization [facility] Address [address] [place] [address] Care Team Providers Care Software Developer Mid Level Name Role Phone No, Physician Primary Care Provider [phone] Abdullahi Car MD Unavailable Encounters Date Type Department Care Team Description 10/24/2024 2:30 PM CDT Therapy [facility] Physical [place] [address] Tono Messer, PT Iliotibial band syndrome, left leg (Primary Dx) 10/17/2024 4:15 PM CDT Therapy [facility] Physical [place] [address] Corona Lynn, PT Iliotibial band syndrome, left leg (Primary Dx) 10/09/2024 4:15 PM CDT Therapy [facility] Physical [place] [address] Tono Messer, PT Iliotibial band syndrome, left leg (Primary Dx) 10/03/2024 2:45 PM CDT Therapy [facility] Physical [place] [address] Corona Lynn, PT Iliotibial band syndrome, left leg (Primary Dx) 09/28/2024 2:30 PM CDT Therapy [facility] Physical Therapy [place] [address] ZulayCorona donahue Crowder, PT Iliotibial band syndrome, left leg (Primary Dx) 09/24/2024 11:15 AM CDT Therapy [facility] Physical Therapy [place] [address] Tono Messer, PT Iliotibial band syndrome, left leg (Primary Dx) 09/17/2024 8:15 AM GOLD LEAF LAYER Therapy [facility] Physical Therapy [place] [address] Corona Lynnril, PT Iliotibial band syndrome, left leg (Primary Dx) 09/11/2024 9:15 AM GOLD LEAF LAYER Therapy [facility] Physical Therapy - [place] [address] Tono Messer, PT Iliotibial band syndrome, left [...] on file Legal Sex Female 8:59 AM GOLD LEAF LAYER Gender Identity Not on file Sexual Orientation [...] Plan of Treatment Not on file Insurance [facility]ICA[facility] Care Teams Software Developer Mid Level Relationship Specialty Start Date End Date No, Physician PCP - General 12/27/22 Abdullahi Car MD [address] [place] [address] DR [address] [address] Consulting Physician Obstetrics and Gynecology 01/07/23
--- OUTSIDE RECORDS SUMMARY | 2024-12-08 12:56 | XMS_ITS | Clinical Summary ---
Author Organization [facility] [employer] Address [address] [place] [address] Care Team Providers Care Demand Planner Name Role Phone Blaire Banda MOTORCYCLE BUILDER-SUPERVISOR SINTERING PLANT Primary Care Provider Source Comments [facility] [employer],non-owned Affiliates and Associated Physician Practices is amultiple site organization consisting of ambulatory clinics and hospital sitesin [place], [place], [place] and [place]. This disclosure is being madepursuant to the Care Everywhere program and may not contain all information available regarding this patient. 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tran [address] [place] [address] [phone] PCP - General 02/19/19
--- OUTSIDE RECORDS SUMMARY | 2024-12-08 12:56 | XMS_ITS | CONTINUITY OF CARE DOCUMENT ---
Author Name valentina montgomery Address Unknown Organization [facility] Address [id number] [place] [address] [address] [place] [address] Phone [phone] Care Team Providers Care Police Detention Attendant Name Role Phone Oleksandr Sheehan MD Unavailable Oleksandr Sheehan MD Unavailable INSURANCE PROVIDERS Payer name Policy type / Coverage type [place] red green party ID [id number] MEDICAID (2) Medicaid [id number]
--- OUTSIDE RECORDS SUMMARY | 2024-12-08 12:56 | XMS_ITS | Clinical Summary ---
Author Organization [facility] Address [address] [place] [address] Care Team Providers Care Paper Twister Name Role Phone No, Physician Primary Care Provider [phone] Abdullahi Car MD Unavailable [phone] Allergies Active Allergy Reactions Criticality Noted Date [...] Team Description 10/24/2024 2:30 PM CDT Therapy [facility] [place] [address] Tono Messer, PT Iliotibial band syndrome, left leg (Primary Dx) 10/17/2024 4:15 PM CDT Therapy [facility] [place] [address] Corona Lynn, PT Iliotibial band syndrome, left leg (Primary Dx) 10/09/2024 4:15 PM CDT Therapy [facility] Physical [facility] [place] [address] Tono Messer, PT Iliotibial band syndrome, left leg (Primary Dx) 10/03/2024 2:45 PM CDT Therapy [facility] Physical [facility] [place] [address] Corona Lynn, PT Iliotibial band syndrome, left leg (Primary Dx) 09/28/2024 2:30 PM CDT Therapy [facility] Physical [facility] [place] [address] Corona Lynn, PT Iliotibial band syndrome, left leg (Primary Dx) 09/24/2024 11:15 AM CDT Therapy [facility] [place] [address] Tono Messer, PT Iliotibial band syndrome, left leg (Primary Dx) 09/17/2024 8:15 AM CENTRIFUGE SEPARATOR TENDER Therapy [facility] Physical [facility] [place] [address] Corona Lynn, PT Iliotibial band syndrome, left leg (Primary Dx) 09/11/2024 9:15 AM CENTRIFUGE SEPARATOR TENDER Therapy [facility] Physical [facility] [place] [address] Tono Messer, PT Iliotibial band syndrome, left [...] on file Legal Sex Female 8:59 AM CENTRIFUGE SEPARATOR TENDER Gender Identity Not on file Sexual Orientation [...] patient's age to complete this topic Insurance [facility] MEDICAID IDPA [facility] HMO/PPO Address: [address] [address] [place] [address] [facility] HMO/PPO Address: [address] [address] [place] [address] Care Teams Paper Twister Relationship Specialty Start Date End Date No, Physician PCP - General 12/27/22 Abdullahi Car MD [address] [place] [address] DR CHARMAINE Perry [address] [address] Consulting Physician Obstetrics and Gynecology 01/07/23
[2024-12-08 13:00] VITALS: BP 120/89; PULSE 57; RESP 17; O2SAT 100
[2024-12-08 13:30] VITALS: BP 126/94; PULSE 66; RESP 17; O2SAT 100
[2024-12-08 13:46] VITALS: BP 126/94; PULSE 66; RESP 17; TEMP 36.9; O2SAT 100
== END 2024-12-08 13:46 | disposition home or self-care (01) ==
LOC: CHSED 12:54
PROVIDERS: Emergency Provider Emergency Medicine
DX: G43.909 Migraine, unspecified, not intractable, without status migrainosus (principal); F17.210 Nicotine dependence, cigarettes, uncomplicated
CPT/HCPCS: 96361; 96374; 99284; J1885; J7030

== ENCOUNTER 2025-01-22 16:40 | Emergency (ER) | payer OTHER, MEDICAID, SELFPAY ==
--- NOTE | ~2025-01-22 | XR_ITS ---
XR foot RT min 3V Ordering provider: Dimitris Morales APRN History: . fall 4 days ago, prox dorsal pain . Comparison: None. FINDINGS: BONES: No acute fracture or dislocation. Small bony fragments near to the base of the fifth metatarsa l bone is most likely nonunited apophysis. Clinical correlation for tenderness in the area advised. JOINT SPACES: Osteoarthritic changes of the first metatarsophalangeal joint. No tarsal coalition. SOFT TISSUES: Normal. Calcaneus spur. Ossification of the insertion of the tendo Achilles. IMPRESSION: No acute osseous abnormality of the right foot. Calcaneal spur. Reviewed, dictated and finalized at location A.
--- NOTE | ~2025-01-22 | XR_ITS ---
XR ankle RT min 3V Ordering provider: Dimitris Morales APRN History: . fall 4 days ago, lateral pain . Comparison: None. FINDINGS: BONES: No acute fracture or dislocation. Osteophytes seen in the medial malleolus. Cystic changes see n in the lateral malleolus. JOINT SPACES: Slight narrowing. SOFT TISSUES: Ossification seen in the interosseous membrane. Calcaneus spur. Ossification of the insertion of the tendo Achilles. IMPRESSION: No acute osseous abnormality of the right ankle. 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 Reviewed, dictated and finalized at location A.
--- OUTSIDE RECORDS SUMMARY | 2025-01-22 16:42 | XMS_ITS | Clinical Summary ---
Author Organization [facility] [employer] Address [address] [place] [address] Care Team Providers Care Magazine Writer Name Role Phone Blaire Banda VIDEO COORDINATOR-CATTLE KILLER Primary Care Provider Source Comments [facility] [employer],non-owned Affiliates and Associated Physician Practices is amultiple site organization consisting of ambulatory clinics and hospital sitesin [place], [place], [place] and [place]. This disclosure is being madepursuant to the Care Everywhere program and may not contain all information available regarding this patient. 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 Gender Identity Not on file Sexual Orientation [...] SCREENING 1978 LIPID TESTING 1978 MAMMOGRAM 1978 HIV SCREENING 1993 HEPATITIS C SCREENING 09/24/1996 DTAP/TDAP/TD VACCINES (1 - Tdap) 1997 HEPATITIS B VACCINE (1 of 3 - 19+ 3-dose series) 1997 PAP SMEAR 09/30/1999 COVID-19 VACCINE ( - 2023-2 5 season) 2024 DEPRESSION SCREENING [...] patient's age to complete this topic Insurance [facility] Care Teams Magazine Writer Relationship Specialty Start Date End Date Blaire Banda, AMARIS-CATTLE KILLER [address] [place] [address] [phone] PCP - General 02/19/19
--- OUTSIDE RECORDS SUMMARY | 2025-01-22 16:45 | XMS_ITS | Referral Summary ---
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
--- OUTSIDE RECORDS SUMMARY | 2025-01-22 16:45 | XMS_ITS | Clinical Summary ---
Author Organization 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 Gender Identity Not on file Sexual [...] of 2 - PCV) 1997 Influenza Vaccine (#1) 2025 08/30/2012 Hepatitis B Screening Completed 08/30/2012 , 02/25/2009 HPV Vaccines Aged Out No longer eligi ble based on patient's age to complete this topic Insurance [facility] [place] [address] [place] [address] [facility] [place] [address] [facility] Care Teams Cutter Grinder Operator Relationship Specialty Start Date End Date No, Physician PCP - General 12/27/22 Abdullahi Car MD [address] [place] [address] DR MONTANO B [address] [address] Consulting Physician Obstetrics and Gynecology 01/07/23
[2025-01-22 16:46] VITALS: BP 136/76; PULSE 81; RESP 20; TEMP 37.1; O2SAT 99
--- NOTE | 2025-01-22 17:01 | ED.LOWEXIN ---
HPI - Extremity Injury (Lower) General Chief Complaint: Extremity Injury, Lower Stated Complaint: Right ankle swollen Time Seen by Provider: 01/22/25 16:50 Source: patient and RN notes reviewed Mode of arrival: ambulatory Limitations: no limitations History of Present Illness HPI Narrative: 44-year-old female Presents to [facility] Care complaining of injury to right ankle/foot practically 4 days ago. Patient reports she was at a barbecue when she was going to sit on a cooler when she missed the cooler and fell backwards landing on her butt. Patient denies hitting her head, loss of consciousness, neck pain, back pain. Patient believes she rolled her right ankle when she fell. Patient reports swelling to her right ankle the gets worse throughout the day. Patient reports some pain with bearing weight on the right foot. Patient reports lateral ankle pain in dorsal pain to her foot. Patient has a history of fractured her right ankle. Patient's has been taking Tylenol or ibuprofen with relief. Patient denies any numbness, tingling or any other injuries. Patient has a decent significant past medical history. Patient is not taking blood thinners. Related Data Home Medications ?Medication ?Instructions ?Recorded ?Confirmed ?Last Taken ?Type sumatriptan succinate 50 mg tablet mg PO 01/22/25 Unknown History Allergies Allergy/AdvReac Type Severity Reaction Status Date / Time ondansetron Allergy Intermediate rash Verified 01/22/25 16:55 Review of Systems Review of Systems: CONSTITUTIONAL: Denies fever, chills, or sweats. EYES: Denies visual changes, redness, or discharge. ENT: Denies rhinorrhea, congestion, sore throat, or otalgia. CARDIOVASCULAR: Denies chest pain, palpitations, or edema. RESPIRATORY: Denies cough or dyspnea. GASTROINTESTINAL: Denies abdominal pain, nausea, vomiting, or diarrhea. GENITOURINARY: Denies dysuria or hematuria. SKIN: Denies rash, wound, or itching. MUSCULOSKELETAL: Denies neck pain, back pain, joint pain, or myalgia. Positive for right ankle/foot injury and swelling NEUROLOGIC: Denies headache, numbness, or weakness. PSYCHIATRIC: Denies anxiety or depression. All other systems reviewed are negative, except as documented in HPI. [facility] Past Medical History Medical History Morbid obesity Anxiety and depression Surgical History Surgical History Previous section History of appendectomy Social History Social History Smoking status: Current every day smoker Tobacco type: cigarettes Living arrangements: with family Gender identity (if verbalized by the patient): Female Comments At the time of my signature, I reviewed and agree with the nursing past medical, surgical, social, and family history. There is no relevant family history pertinent to the patient complaint. Exam Narrative: GENERAL: This is a well-nourished, well-developed adult, in no apparent distress. They are non ill-appearing, nontoxic appearing. HEAD: normocephalic, atraumatic. EYES: Sclera clear/white. Vision is grossly intact. Conjunctiva normal. Extraocular movement intact. EARS: External ears normal Hearing grossly intact. NOSE: External nose normal THROAT: Mucous membranes moist NECK: Neck supple CARDIOVASCULAR: Regular rate and rhythm RESPIRATORY: Respiratory rate normal, respiratory effort nonlabored, no respiratory distress NEURO: awake, alert, and oriented to person, place and time. There were no obvious focal neurologic abnormalities. EXTREMITIES: Right ankle/foot: No obvious deformity, bruising, redness. There is swelling throughout the right ankle. There is tenderness to palpation to the lateral ankle and dorsal surface of the proximal foot. There is pain through full range of motion of ankle. Capillary refill less than 3 seconds. Right pedal Pulse 2 +palpable. Normal sensation. Neurovascular status intact distal injury. Patient of Reeves toes. BACK: Nontender without deformity. Course Course Emergency Course: Portions of this record may have been created with voice recognition software Level of Care: Express Care Visit Vital Signs Vital signs: Vital Signs Temperature 98.7 F 01/22/25 16:46 Pulse Rate 81 01/22/25 16:46 Respiratory Rate 20 01/22/25 16:46 Blood Pressure 136/76 01/22/25 16:46 Pulse Oximetry 99 01/22/25 16:46 Oxygen Delivery Room Air 01/22/25 16:46 Temperature 98.7 F 01/22/25 16:46 Pulse Rate 81 01/22/25 16:46 Respiratory Rate 20 01/22/25 16:46 Blood Pressure 136/76 01/22/25 16:46 Pulse Oximetry 99 01/22/25 16:46 Oxygen Delivery Room Air 01/22/25 16:46 Reviewed MDM - Extremity Injury (Lower) MDM Narrative Medical decision making narrative: X-ray right foot/ankle revealed no evidence of fractures or acute findings. Incidental calcaneal spur noted to right foot along with arthritis changes to the right ankle that appear mild. Alfred wrap given for compression. Recommend conservative therapy. Discussed physical exam findings. Advised supportive measures and signs/symptoms to go to the ER. Pt is appropriate for outpt treatment and f/u. Differential Diagnosis Differential diagnosis: Likely ankle sprain and strain, ankle fracture and other (Foot fracture) Imaging Data Radiologist's impression: ITS Impressions Ankle X-Ray 01/22/25 17:31 IMPRESSION: No acute osseous abnormality of the right ankle. 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 Foot X-Ray 01/22/25 17:33 IMPRESSION: No acute osseous abnormality of the right foot. Calcaneal spur. Critical Care Time Critical Care Time Critical Care Time: No Discharge Plan Discharge Clinical Impression: Calcaneal spur of right foot Injury of ankle, right Qualifiers: Encounter type: initial encounter Qualified Code(s): S99.911A - Unspecified injury of right ankle, initial encounter Patient Disposition: Home Condition: Stable Instructions: Ankle Sprain (ED) Additional Instructions: The x-ray of your right foot and right ankle were negative for any fractures or acute findings. It did incidentally show a bone spur on your right heel and mild arthritis in your right ankle. Rest and elevate the leg; bear weight as tolerated Apply ice 15-20 minute intervals several times a day Keep it wrapped with ALFRED or use a soft ankle splint Motrin 600mg -800mg every 8 hours, alternate with Tylenol 1000mg every 8 hours as needed Follow up with your primary care provider or orthopedist as needed in 1-2 weeks if pain persists You may need to see the podiatric technician if the bone spur starts to cause you pain. Patient Language: [place] Prescriptions: No Action sumatriptan succinate 50 mg tablet PO Follow-up/Referrals: Yeyo Wadsworth DPM [Physician] - PHYSICIAN,PULP COOKER [Primary Care Provider] - Jose Loyd MD [Physician] - Time of Disposition: 17:49
== END 2025-01-22 17:53 | disposition home or self-care (01) ==
DX: M77.31 Calcaneal spur, right foot (principal); S99.911A Unspecified injury of right ankle, initial encounter; W18.39XA Other fall on same level, initial encounter; F17.210 Nicotine dependence, cigarettes, uncomplicated; E66.01 Morbid (severe) obesity due to excess calories
CPT/HCPCS: 73610; 73630; 99213; G0463

== ENCOUNTER 2025-01-28 17:26 | Emergency (ER) | payer OTHER, MEDICAID, SELFPAY ==
[2025-01-28 17:28] VITALS: BP 133/84; PULSE 74; RESP 16; TEMP 36.6; O2SAT 97
--- OUTSIDE RECORDS SUMMARY | 2025-01-28 17:30 | XMS_ITS | Clinical Summary ---
Author Organization [facility] Address [address] [place] [address] Care Team Providers Care Technical Research Scientist Name Role Phone Blaire Banda MIMEOGRAPH OPERATOR-OPERATIONAL TEST MECHANIC Primary Care Provider Source Comments [facility],non-owned Affiliates and Associated Physician Practices is amultiple site organization consisting of ambulatory clinics and hospital sitesin [place], [place], [place] and [place]. This disclosure is being madepursuant to the Care Everywhere program and may not contain all information available regarding this patient. 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
--- OUTSIDE RECORDS SUMMARY | 2025-01-28 17:30 | XMS_ITS | Referral Summary ---
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 Care Teams Shank Paperer Relationship Specialty Start Date End Date No, Physician PCP - General 12/27/22 Abdullahi Car MD [address] [place] [address] [place] [address] Consulting Physician Obstetrics and Gynecology 01/07/23
--- OUTSIDE RECORDS SUMMARY | 2025-01-28 17:30 | XMS_ITS | Clinical Summary ---
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
--- NOTE | 2025-01-28 18:02 | ED_ITS ---
HPI - Skin/Abscess/Foreign Bdy General Chief complaint: Extremity Problem,Nontraumatic Stated complaint: right leg calf red & swollen Time Seen by Provider: 01/28/25 18:01 Source: patient Mode of arrival: ambulatory Limitations: no limitations History of Present Illness HPI narrative: 44 YEARS OLD WHITE FEMALE CAME TO THE ED WITH TENDERNESS AND REDNESS AND WARMTH AT THE LATERAL SIDE OF THE RIGHT LOWER LEG STARTED 1 WEEK AGO PATIENT MISSED A CHAIR ON January AND FELL AT THAT TIME TO THE GROUND, POSSIBLE SCRATCHING THE RIGHT LOWER LEG ON THE GROUND. PATIENT IS HEALTHY OTHERWISE, DOES NOT TAKE MEDICINE AT HOME, DENIES ANY FEVER, CHILLS, NAUSEA, VOMITING, CHEST PAIN, SHORTNESS OF BREATH OR ANY INJURIES. PATIENT WORKS AT [employer] LONG HOURS STANDING AND WALKING. Related Data Home Medications ?Medication ?Instructions ?Recorded ?Confirmed ?Last Taken ?Type No Home Medications 01/28/25 01/28/25 Unknown History Allergies Allergy/AdvReac Type Severity Reaction Status Date / Time ondansetron Allergy Intermediate rash Verified 01/28/25 17:54 Review of Systems Review of Systems: All systems reviewed & are unremarkable except as noted in HPI and below PMFSH Past Medical History Medical History Morbid obesity Anxiety and depression Surgical History Surgical History Previous section History of appendectomy Social History Social History Smoking status: Current every day smoker Tobacco type: cigarettes Living arrangements: with family Gender identity (if verbalized by the patient): Female Exam Narrative: GENERAL APPEARANCE: WELL-DEVELOPED, WELL-NOURISHED SKIN: NORMAL COLOR HEAD: NORMOCEPHALIC, NONTRAUMATIC EYES: CLEAR CONJUNCTIVA ENT: OROPHARYNX NORMAL, EARS NORMAL, NOSE NORMAL NECK: SUPPLE, NONTENDER CHEST AND RESPIRATORY: AIRWAY PATENT, NO RESPIRATORY DISTRESS, NO ACCESSORY MUSCLE USE HEART: REGULAR RATE/RHYTHM ABDOMEN: SOFT, NONTENDER, NO ORGANOMEGALY, QUIET BOWEL SOUNDS VASCULAR: NORMAL PERIPHERAL PULSES, NORMAL CAPILLARY REFILL. MUSCULOSKELETAL: RIGHT LOWER LEG ERYTHEMATOUS CHANGES, DIFFUSE TENDERNESS LA TERALLY, WARMTH, VARICOSE VEINS, NILSON LIKE FEELING. NEUROLOGIC: ALERT AND ORIENTED ?3, HORSE RACE STARTER IS NORMAL TESTED, NO GROSS MOTOR DEFICIT Course Vital Signs Vital signs: Vital Signs Temperature 36.6 C 01/28/25 17:28 Pulse Rate 74 01/28/25 17:28 Respiratory Rate 16 01/28/25 17:28 Blood Pressure 133/84 01/28/25 17:28 Pulse Oximetry 97 01/28/25 17:28 Oxygen Delivery Room Air 01/28/25 17:28 Temperature 36.6 C 01/28/25 17:28 Pulse Rate 74 01/28/25 17:28 Respiratory Rate 16 01/28/25 17:28 Blood Pressure 133/84 01/28/25 17:28 Pulse Oximetry 97 01/28/25 17:28 Oxygen Delivery Room Air 01/28/25 17:28 MDM - Skin/Abscess/Foreign Bdy MDM Narrative Medical decision making narrative: DIFFERENTIAL DIAGNOSIS CELLULITIS, SUPERFICIAL THROMBOPHLEBITIS DISCHARGED ON KEFLEX, WARM COMPRESSES AND IBUPROFEN AT KEEP LEG ELEVATED. THREE DAYS OF WORK Critical Care Time Critical Care Time Critical Care Time: No Discharge Plan Discharge Clinical Impression: Cellulitis of leg, right, Superficial thrombophlebitis, Varicose vein of leg Patient Disposition: Home Condition: Stable Instructions: Antibiotic Form, Cellulitis (ED), Superficial Thrombophlebitis (ED), Venous Insufficiency (DC) Additional Instructions: RETURN IF SYMPTOMS ARE WORSENING , CALL YOUR FAMILY PHYSICIAN FOR APPOINTMENT, TAKE IBUPROFEN 600 MG EVERY 6 HOURS NEEDED FOR ACHES AND PAIN, CONTINUE HOME MEDICATIONS. KEEP LEG ELEVATED WARM COMPRESSES Patient Language: Greenlandic Prescriptions: New cephalexin 500 mg capsule 500 mg PO Q6H Qty: 28 0RF No Action No Home Medications Follow-up/Referrals: UNKNOWN,DOCTOR [Primary Care Provider] - Stand Alone Forms: Work/School Release IP
--- OUTSIDE RECORDS SUMMARY | 2025-01-28 18:23 | XMS_ITS | Clinical Summary ---
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 H[facility]PPO Address: [address] [address] [place] [address] [facility]/PPO Address: [address] [address] [place] [address] Care Teams Protective Signal Installer Helper Relationship Specialty Start Date End Date No, Physician PCP - General 12/27/22 Abdullahi Car MD [address] [place] [address] [address] [address] Consulting Physician Obstetrics and Gynecology 01/07/23
--- OUTSIDE RECORDS SUMMARY | 2025-01-28 18:23 | XMS_ITS | Clinical Summary ---
Author Organization [facility] Address [address] [place] [address] Care Team Providers Care Highway Maintainer Name Role Phone Blaire Banda ASSISTANT MAINTENANCE MANAGER-TUFTING MACHINE FIXER Primary Care Provider Source Comments [facility],non-owned Affiliates and Associated Physician Practices is amultiple site organization consisting of ambulatory clinics and hospital sitesin [place]. This disclosure is being madepursuant to the Care Everywhere program and may not contain all information available regarding this patient. 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
--- OUTSIDE RECORDS SUMMARY | 2025-01-28 18:23 | XMS_ITS | Referral Summary ---
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 Gender Identity Not on file Sexual Orientation [...] Plan of Treatment Not on file [place] [address] [address] MEDICAID [facility] OTHER Address: [address] [address] [place] [address] [facility] Care Teams Cuff Knitter Relationship Specialty Start Date End Date No, Physician PCP - General 12/27/22 Abdullahi Car MD [address] [place] [address] [place] [address] Consulting Physician Obstetrics and Gynecology 01/07/23
== END 2025-01-28 18:24 | disposition home or self-care (01) ==
LOC: CHSED 18:21
PROVIDERS: Emergency Provider Emergency Medicine
DX: L03.115 Cellulitis of right lower limb (principal); I80.01 Phlebitis and thrombophlebitis of superficial vessels of right lower extremity; I83.91 Asymptomatic varicose veins of right lower extremity; F17.210 Nicotine dependence, cigarettes, uncomplicated
CPT/HCPCS: 99283

== ENCOUNTER 2025-02-04 16:59 | Emergency (ER) | payer OTHER, MEDICAID, SELFPAY ==
--- OUTSIDE RECORDS SUMMARY | 2025-02-04 17:02 | XMS_ITS | Clinical Summary ---
Author Organization [facility] Address [address] [place] [address] Care Team Providers Care Colon Therapist Name Role Phone Blaire Banda PYTHON CONSULTANT-HVAC SERVICE TECH Primary Care Provider Source Comments [facility],non-owned Affiliates and Associated Physician Practices is amultiple site organization consisting of ambulatory clinics and hospital sitesin [place], [place], [place] and [place]. This disclosure is being madepursuant to the Care Everywhere program and may not contain all information available regarding this patient. 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
--- OUTSIDE RECORDS SUMMARY | 2025-02-04 17:02 | XMS_ITS | Clinical Summary ---
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 Care Teams Retail Shift Leader Relationship Specialty Start Date End Date No, Physician PCP - General 12/27/22 Abdullahi Car MD [address] [place] [address] [address] [address] Consulting Physician Obstetrics and Gynecology 01/07/23
--- OUTSIDE RECORDS SUMMARY | 2025-02-04 17:02 | XMS_ITS | Referral Summary ---
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 Gender Identity Not on file Sexual Orientation [...] Plan of Treatment Not on file [place] [address] MEDICAID [facility] OTHER Address: [address] [address] [place] [address] [facility] Care Teams Blindstitch Lapel Padder Relationship Specialty Start Date End Date No, Physician PCP - General 12/27/22 Abdullahi Car MD [address] [place] [address] [place] [address] Consulting Physician Obstetrics and Gynecology 01/07/23
[2025-02-04 17:04] VITALS: BP 148/87; PULSE 82; RESP 20; TEMP 37.1; O2SAT 99
--- NOTE | 2025-02-04 17:10 | ED_ITS ---
HPI - Extremity Injury (Lower) General Chief Complaint: Extremity Problem,Nontraumatic Stated Complaint: Right leg issues Time Seen by Provider: 02/04/25 17:11 Source: patient, RN notes reviewed and old records reviewed Mode of arrival: ambulatory Limitations: no limitations History of Present Illness HPI Narrative: 44-year-old female presents to the [facility] with concerns to pain and swelling to the right leg pain, swelling, bruising, discoloration Was treated with Keflex for possible cellulitis. Tenderness posterior and lateral. Onset (ago): week(s) (One week plus) Treatments prior to arrival: other (Antibiotic) Related Data Allergies Allergy/AdvReac Type Severity Reaction Status Date / Time ondansetron Allergy Intermediate rash Verified 02/04/25 17:11 Review of Systems 2 Review of Systems: All systems reviewed & are unremarkable except as noted in HPI and below Constitutional: Constitutional: Reports no additional constitutional complaints Cardiovascular: Cardiovascular: Reports no additional cardiovascular complaints, Denies chest pain and Denies dyspnea Respiratory: Respiratory: Reports no additional respiratory complaints, Denies chest congestion, Denies cough and Denies dyspnea Musculoskeletal: Musculoskeletal: Reports as per HPI Integumentary/Breasts: Skin/Breast: Reports system reviewed and no additional complaints, except as docu PMFSH Past Medical History Medical History Morbid obesity Anxiety and depression Surgical History Surgical History Previous section History of appendectomy Social History Social History Smoking status: Current every day smoker Tobacco type: cigarettes Living arrangements: with family Gender identity (if verbalized by the patient): Female Comments At the time of my signature, I reviewed and agree with the nursing past medical, surgical, social, and family history. There is no relevant family history pertinent to the patient complaint. Exam 2 Const: General: cooperative, healthy appearing, comfortable, no acute distress, well developed, alert and well nourished Nutritional Appearance: w ell nourished Orientation/consciousness: patient oriented x3 Limitations: no limitations HENMT: Head: normal to inspection Eyes: General: appearance normal, both eyes and all related structures A lignment and Position: alignment normal Neck: Neck: normal visual inspection, full ROM, no lymphadenopathy and no meningeal signs Chest: Chest palpation & inspection: normal inspection of the chest Resp: Effort & Inspection: normal respiratory effort and able to speak in complete sentences Cardio: Rate: regular rate Skin: General skin exam: no rashes or lesions noted Neuro: General: patient oriented x3, gait normal, moves all extremities and no meningeal signs Cognition (Neuro): normal cognition Speech: normal speech Gait exam (Neuro): Normal gait present Extrem: General: normal to inspection, full ROM, capillary refill normal and normal gait Right lower extremity: full ROM, edema Details: non-pitting, lower leg Details: erythema (Lateral), tenderness, non-pitting edema and ecchymosis and ankle Details: edema Details: non-pitting Ankle/foot/toe images: 1. 51 cm, swelling, discoloration to the posterior lateral aspect 2. 44 cm. Psych: Appearance: grossly normal and well kempt Mental Status: mental status grossly normal Speech and movement: Normal speech and movement present and Clear speech present Affect: normal affect Attitude: cooperative Course Course Level of Care: Express Care Visit Vital Signs Vital signs: Vital Signs Temperature 98.8 F 02/04/25 17:04 Pulse Rate 82 02/04/25 17:04 Respiratory Rate 20 02/04/25 17:04 Blood Pressure 148/87 H 02/04/25 17:04 Pulse Oximetry 99 02/04/25 17:04 Oxygen Delivery Room Air 02/04/25 17:04 Temperature 98.8 F 02/04/25 17:04 Pulse Rate 82 02/04/25 17:04 Respiratory Rate 20 02/04/25 17:04 Blood Pressure 148/87 H 02/04/25 17:04 Pulse Oximetry 99 02/04/25 17:04 Oxygen Delivery Room Air 02/04/25 17:04 Reviewed Transfer Transfered to: [facility] Transportation: Other (POV) Transfer rationale: Patient with significant swelling, discoloration to the right lower leg, sending for higher level care rule out DVT Accepting physician: Dr. Cote, spoke with Mykel SIMPSON MDM - Extremity Injury (Lower) MDM Narrative Medical decision making narrative: Patient sitting in exam room. Patient is nontoxic, vitals stable. Patient presents with continued discomfort, swelling to the right lower leg. This difference mid calf is7 cm Per medical record 1 week ago was treated for cellulitis. Strong concern for DVT, sending for higher level care. Patient chose to go to [place] Transfer instructions reviewed patient go directly to the ER. All questions have been answered, and the patient deny any further questions Some parts of this dictation were generated by voice recognition software and may contain typographical and/or grammatical inaccuracies. Differential Diagnosis Differential diagnosis: Likely ankle sprain and strain and other (Cellulitis, DVT) Critical Care Time Critical Care Time Critical Care Time: No Discharge Plan Discharge Clinical Impression: Right leg swelling Patient Disposition: Acute Care Hospital Condition: Stable Patient Language: Bengali Prescriptions: No Action cephalexin 500 mg capsule 500 mg PO Q6H Qty: 28 0RF Follow-up/Referrals: PHYSICIAN NOT ON STAFF,NONSTAFF [Primary Care Provider] -
== END 2025-02-04 17:26 | disposition short-term general hospital (02) ==
PROVIDERS: Emergency Provider Nurse Practitioner
DX: R22.41 Localized swelling, mass and lump, right lower limb (principal); F17.210 Nicotine dependence, cigarettes, uncomplicated; E66.01 Morbid (severe) obesity due to excess calories; Z68.39 Body mass index [BMI] 39.0-39.9, adult
CPT/HCPCS: 99212; G0463